=== PATIENT | female | born 1940 | race Caucasian/White ===

== ENCOUNTER 2019-03-21 12:15 | Outpatient (CLI) | payer MEDICARE, BC | END 2019-03-21 12:16 | disposition home or self-care (01) | LOC: ULT 12:15 | PROVIDERS: ATTEND Internal Medicine | DX: R55 Syncope and collapse (principal); I51.7 Cardiomegaly; I08.1 Rheumatic disorders of both mitral and tricuspid valves | CPT/HCPCS: 93306 ==

== ENCOUNTER 2019-04-04 07:20 | Outpatient (CLI) | payer MEDICARE, BC ==
[2019-04-04] MEDS ORDERED: ADENOSINE 60 MG/20 ML VIAL ONE (12:16)
--- NOTE | 2019-04-04 13:21 | NM ---
NUCLEAR MEDICINE CARDIAC SPECT WITH EJECTION FRACTION AND WALL MOTION: HISTORY: Syncope. Prior cardiac catheterization. TECHNIQUE: Adenosine sestamibi study performed Patient was injected with 33.0 mCi technetium-99m sestamibi intra venously for stress images and patient was injected with 11.0 mCi technetium-99m sestamibi intravenou sly for resting images. FINDINGS: Multiple SPECT images in the short axis, vertical long axis, and horizontal long axis demonstrate no scan evidence for infarct or ischemia. TID: 0.90 LHR: 0.31 EDV: 62 mL EF: 88% MYOCARDIAL PERFUSION WALL MOTION: Wall motion is normal. IMPRESSION: Unremarkable cardiac SPECT with ejection fraction and wall motion. POS: BUD
== END 2019-04-04 07:21 | disposition home or self-care (01) ==
LOC: NM 07:20
PROVIDERS: ATTEND Internal Medicine
DX: R55 Syncope and collapse (principal)
CPT/HCPCS: 78452; 93017; A9500; J0153

== ENCOUNTER 2022-08-19 09:07 | Outpatient (CLI) | payer MEDICARE, BC | END 2022-08-19 09:08 | disposition home or self-care (01) | LOC: BICMAMMO 09:07 | PROVIDERS: ATTEND Internal Medicine | DX: Z13.820 Encounter for screening for osteoporosis (principal); M85.851 Other specified disorders of bone density and structure, right thigh; M85.852 Other specified disorders of bone density and structure, left thigh | CPT/HCPCS: 77080 ==